=== PATIENT | male | born 1995 | race Caucasian/White ===

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

== ENCOUNTER 2019-06-15 18:36 | Emergency (ER) | payer OTHER ==
[~2019-06-15] VITALS: Ht 185.4 cm; Wt 67.1 kg
[2019-06-15] MEDS ORDERED: ONDANSETRON HCL/PF 4 MG/2 ML VIAL ONE (19:23)
[2019-06-15] MEDS ORDERED: DEXAMETHASONE SOD PHOSPHATE 10 MG/ML VIAL ONE (19:23)
[2019-06-15] MEDS ORDERED: ACETAMINOPHEN ES 500 MG TABLET ONE (19:23)
[2019-06-15] MEDS ORDERED: ONDANSETRON HCL/PF 4 MG/2 ML VIAL IV ONE (19:30)
[2019-06-15] MEDS ORDERED: DEXAMETHASONE SOD PHOSPHATE 10 MG/ML VIAL IV ONE (19:30)
[2019-06-15] MEDS ORDERED: IV NS 0.9% 1,000 ML BAG IV ONE (19:30)
[2019-06-15] MEDS ORDERED: ACETAMINOPHEN 325 MG TABLET PO ONE (19:30)
--- NOTE | 2019-06-15 20:11 | NUR ---
Patient discharged to home in stable condition. Written and verbal after care instructions given. Patient verbalizes understanding of instruction.
[2019-06-15 20:12] VITALS: BP 115/64
== END 2019-06-15 20:12 | disposition home or self-care (01) ==
LOC: ER 18:43
DX: J02.9 Acute pharyngitis, unspecified (principal); F17.200 Nicotine dependence, unspecified, uncomplicated
CPT/HCPCS: 96374; 96375; 99283; J1100; J2405; J7030

== ENCOUNTER 2020-04-24 09:47 | Emergency (ER) | payer OTHER ==
[~2020-04-24] VITALS: Ht 188 cm; Wt 72.6 kg
--- NOTE | 2020-04-24 09:54 | NUR ---
CAME IN FOR GENERALIZED ITCHING, RASH UPON WAKING UP THIS MORNING,PARTIAL RELIEF WITH BENADRIL PO. TO ER BED 1, HOOKED TO MONITOR, CHANGED TO HOSP GOWN, WARM BLANKET PROVIDED. DR ELLER AT BEDSIDE
[2020-04-24] MEDS ORDERED: predniSONE 20 MG TABLET ONE (10:29)
[2020-04-24] MEDS ORDERED: ONDANSETRON 4 MG TAB.RAPDIS ONE (10:29)
[2020-04-24] MEDS ORDERED: FAMOTIDINE (20 MG) 20 MG TABLET ONE (10:29)
[2020-04-24] MEDS ORDERED: ONDANSETRON 4 MG TAB.RAPDIS PO ONE (10:30)
[2020-04-24] MEDS ORDERED: predniSONE 10 MG TABLET PO ONE (10:30)
[2020-04-24] MEDS ORDERED: FAMOTIDINE (20 MG) 20 MG TABLET PO ONE (10:30)
--- NOTE | 2020-04-24 10:32 | NUR ---
Patient discharged to home in stable condition. Written and verbal after care instructions given. Patient verbalizes understanding of instruction.
[2020-04-24 10:35] VITALS: BP 124/101
== END 2020-04-24 10:35 | disposition home or self-care (01) ==
LOC: ER 09:52
DX: L50.8 Other urticaria (principal)
CPT/HCPCS: 99284; J7512; Q0162

== ENCOUNTER 2020-07-25 14:21 | Emergency (ER) | payer OTHER ==
[~2020-07-25] VITALS: Ht 182.9 cm; Wt 81.6 kg
--- NOTE | 2020-07-25 14:35 | NUR ---
C/o testicular pain x 5 days 5/10 pain scale, came from urgent care. Patient a/ox4, breathing even and unlabored, no sob noted. Needs attended. Kept comfortable.
--- NOTE | 2020-07-25 15:14 | NUR ---
URINE SAMPLE SENT.
[2020-07-25 15:33] LABS: BILIRUBIN,URINE NEGATIVE (NEGATIVE); BLOOD, URINE NEGATIVE Ery/uL (NEGATIVE); COLOR,URINE YELLOW (YELLOW); LEUKOCYTE ESTERASE ,URINE NEGATIVE (NEGATIVE); NITRITE, URINE NEGATIVE (NEGATIVE); PROTEIN,URINE NEGATIVE (NEGATIVE); UGLUCOSE NEGATIVE (NEGATIVE); UROBILINOGEN,URINE 0.2 EU/dL (0.2)
--- NOTE | 2020-07-25 16:13 | NUR ---
US TECH AT BEDSIDE
--- NOTE | 2020-07-25 17:25 | NUR ---
Patient discharged to home in stable condition. Written and verbal after care instructions given. Patient verbalizes understanding of instruction.
[2020-07-25 17:26] VITALS: BP 124/71
== END 2020-07-25 17:26 | disposition home or self-care (01) ==
LOC: ER 14:24
DX: N45.1 Epididymitis (principal); F12.90 Cannabis use, unspecified, uncomplicated
CPT/HCPCS: 76870-TC; 81001

== ENCOUNTER 2021-07-26 09:59 | Emergency (ER) | payer OTHER ==
[~2021-07-26] VITALS: Ht 185.4 cm; Wt 77.1 kg
--- NOTE | 2021-07-26 10:18 | NUR ---
DR HANCOCK AT BEDSIDE
[2021-07-26] MEDS ORDERED: AMOX/CLAVULANATE 875 MG TABLET PO ONE (10:30)
[2021-07-26] MEDS ORDERED: DEXAMETHASONE SOD PHOSPHATE 6 MG in IV D5W 50 ML IM ONE (10:30)
[2021-07-26] MEDS ORDERED: DEXAMETHASONE SOD PHOSPHATE 10 MG/ML VIAL ONE (10:37)
[2021-07-26] MEDS ORDERED: AMOX/CLAVULANATE 875 MG TABLET ONE (10:37)
--- NOTE | 2021-07-26 11:04 | NUR ---
COVID SWAB DONE AND SENT TO THE LAB
[2021-07-26] MEDS ORDERED: AMOX-427 PO (11:53)
[2021-07-26 12:07] VITALS: BP 129/67
--- NOTE | 2021-07-26 12:07 | NUR ---
Patient discharged to home in stable condition. Written and verbal after care instructions given. Patient verbalizes understanding of instruction.
== END 2021-07-26 12:08 | disposition home or self-care (01) ==
LOC: ER 10:03
DX: K12.2 Cellulitis and abscess of mouth (principal); Z20.822 Contact with and (suspected) exposure to COVID-19
CPT/HCPCS: 71045; 87426; 96372; 99284; C9803; J1100; J7060

== ENCOUNTER 2022-11-26 13:28 | Emergency (ER) | payer OTHER ==
[~2022-11-26] VITALS: Ht 185.4 cm; Wt 72.6 kg
[~2022-11-26 13:28] MED LIST: AMOX-427 PO
--- NOTE | 2022-11-26 14:10 | NUR ---
PT IN BED 7 BREATHING EVEN AND UNLABORED. C/O: FEVER, SORE THROAT, COUGH FOR X5 DAYS WHILE ON AMX THERAPY.
--- NOTE | 2022-11-26 14:11 | NUR ---
AT BEDSIDE FOR EVAL.
[2022-11-26] MEDS ORDERED: KETO15CR2 TP (14:39)
[2022-11-26] MEDS ORDERED: PENI500T PO (14:39)
[2022-11-26 14:47] VITALS: BP 112/68
== END 2022-11-26 14:47 | disposition home or self-care (01) ==
LOC: ER 13:34
DX: J02.9 Acute pharyngitis, unspecified (principal); R21 Rash and other nonspecific skin eruption; F17.200 Nicotine dependence, unspecified, uncomplicated

== ENCOUNTER 2023-06-05 22:19 | Emergency (ER) | payer OTHER ==
[~2023-06-05] VITALS: Ht 182.9 cm; Wt 78.9 kg
[~2023-06-05 22:19] MED LIST changes: +KETO15CR2 TP; +PENI500T PO
[2023-06-05 23:20] LABS: BASOPHILS % (AUTO) 0.6 % (0.0-2.0); EOSINOPHILS # (AUTO) 0.2 K/uL (0.0-0.7); EOSINOPHILS % (AUTO) 1.9 % (0.0-6.0); HEMATOCRIT 45 % (39-51); HEMOGLOBIN 15.1 g/dL (13.5-17.5); LYMPHOCYTES # (AUTO) 3.2 K/uL (0.8-4.8); LYMPHOCYTES % (AUTO) 37.7 % (20.0-44.0); MEAN CORPUSCULAR HEMOGLOBIN 30 PG (26.0-33.0); MEAN CORPUSCULAR HGB CONC 34 g/dl (31.0-36.0); MEAN CORPUSCULAR VOLUME 87 fL (80-96); MONOCYTES # (AUTO) 0.6 K/uL (0.1-1.30); MONOCYTES % (AUTO) 7.6 % (2.0-12.0); NEUTROPHILS # (AUTO) 4.4 K/uL (1.8-8.9); NEUTROPHILS % (AUTO) 52.2 % (43.0-81.0); PLATELET COUNT (AUTO) 242 K/uL (150-450); RED BLOOD CELL COUNT(AUTO) 5.13 MIL/uL (4.5-6.0); RED CELL DISTRIBUTION WIDTH 13.4 % (11.5-15.0); WHITE BLOOD COUNT (AUTO) 8.4 K/uL (4.3-11.0)
[2023-06-05 23:54] LABS: CARBON DIOXIDE 27 mmol/L (21-32); CHLORIDE 103 mmol/L (98-107); CREATININE 1.2 mg/dL (0.6-1.3); GLUCOSE 113 mg/dL (74-106); POTASSIUM 3.3 mmol/L (3.5-5.1); SODIUM SERUM 140 mmol/L (136-145); UREA NITROGEN, BLOOD 13 mg/dL (7-18)
[2023-06-06 00:48] VITALS: BP 128/80; TEMP 98.2; O2SAT 98
== END 2023-06-06 00:56 | disposition home or self-care (01) ==
LOC: ER 22:23
DX: R07.89 Other chest pain (principal); R06.02 Shortness of breath; F17.210 Nicotine dependence, cigarettes, uncomplicated; Z79.899 Other long term (current) drug therapy
CPT/HCPCS: 36415; 71045-TC; 80048-TC; 84484-TC; 85025-TC; 85378-TC

== ENCOUNTER 2023-11-14 17:42 | Emergency (ER) | payer OTHER ==
[~2023-11-14] VITALS: Ht 185.4 cm; Wt 74.8 kg
[2023-11-14 18:57] VITALS: BP 131/90; TEMP 98.1; O2SAT 99
[2023-11-14] MEDS ORDERED: ACETAMINOPHEN 325 MG TABLET ONE (19:31)
[2023-11-14] MEDS ORDERED: IBUPROFEN 600 MG TABLET ONE (19:32)
[2023-11-14] MEDS ORDERED: TDAP [DIPH/PERTUSSIS/TET] 0.5 ML VIAL IM ONE (19:32)
[2023-11-14] MEDS: ACETAMINOPHEN 325 MG TABLET PO ONE (19:37)
[2023-11-14] MEDS: IBUPROFEN 600 MG TABLET PO ONE (19:37)
[2023-11-14] MEDS: TDAP [DIPH/PERTUSSIS/TET] 0.5 ML VIAL IM ONE (19:37)
[2023-11-14] MEDS ORDERED: IBUP-1955 PO (21:10)
[2023-11-14] MEDS ORDERED: ACET325C7 PO (21:10)
[2023-11-14] MEDS ORDERED: AMOX-430 PO (21:10)
== END 2023-11-14 21:34 | disposition home or self-care (01) ==
LOC: ER 17:47
DX: S61.214A Laceration without foreign body of right ring finger without damage to nail, initial encounter (principal); Y04.1XXA Assault by human bite, initial encounter; Y93.89 Activity, other specified; Y92.89 Other specified places as the place of occurrence of the external cause; Y99.8 Other external cause status
CPT/HCPCS: 73130-TC; 90715

== ENCOUNTER 2024-02-29 21:35 | Emergency (ER) | payer OTHER ==
[~2024-02-29] VITALS: Ht 185.4 cm; Wt 74.8 kg
[~2024-02-29 21:35] MED LIST changes: +ACET325C7 PO; +AMOX-430 PO; +IBUP-1955 PO
[2024-02-29] MEDS ORDERED: IBUPROFEN 400 MG TABLET ONE (23:26)
[2024-02-29] MEDS: IBUPROFEN 400 MG TABLET PO ONE (23:36)
[2024-02-29 23:37] VITALS: BP 121/76; TEMP 98.8; O2SAT 99
== END 2024-02-29 23:39 | disposition home or self-care (01) ==
LOC: ER 21:35
DX: S60.221A Contusion of right hand, initial encounter (principal); F17.200 Nicotine dependence, unspecified, uncomplicated; Z79.899 Other long term (current) drug therapy; W22.8XXA Striking against or struck by other objects, initial encounter; Y93.89 Activity, other specified; Y92.89 Other specified places as the place of occurrence of the external cause; Y99.8 Other external cause status
CPT/HCPCS: 73130-TC

== ENCOUNTER 2024-04-11 01:34 | Emergency (ER) | payer OTHER ==
[~2024-04-11] VITALS: Ht 185.4 cm; Wt 77.1 kg
[2024-04-11 02:37] VITALS: TEMP 98.4
[2024-04-11] MEDS ORDERED: CT SWABBABLE VALVE TRANS SET 1 EA INFUS.SET MC ONE (03:21)
[2024-04-11] MEDS ORDERED: IV NS 0.9% 250 ML IV ONE (03:21)
[2024-04-11] MEDS ORDERED: IOHEXOL-300 100 ML VIAL IV ONE (03:21)
[2024-04-11 03:43] LABS: BASOPHILS % (AUTO) 0.5 % (0.0-2.0); EOSINOPHILS # (AUTO) 0.3 K/uL (0.0-0.7); EOSINOPHILS % (AUTO) 2.4 % (0.0-6.0); HEMATOCRIT 44 % (39-51); HEMOGLOBIN 14.8 g/dL (13.5-17.5); LYMPHOCYTES # (AUTO) 3.8 K/uL (0.8-4.8); LYMPHOCYTES % (AUTO) 36.1 % (20.0-44.0); MEAN CORPUSCULAR HEMOGLOBIN 30 PG (26.0-33.0); MEAN CORPUSCULAR HGB CONC 34 g/dl (31.0-36.0); MEAN CORPUSCULAR VOLUME 87 fL (80-96); MONOCYTES # (AUTO) 0.6 K/uL (0.1-1.30); MONOCYTES % (AUTO) 6.2 % (2.0-12.0); NEUTROPHILS # (AUTO) 5.7 K/uL (1.8-8.9); NEUTROPHILS % (AUTO) 54.8 % (43.0-81.0); PLATELET COUNT (AUTO) 243 K/uL (150-450); RED CELL DISTRIBUTION WIDTH 13.9 % (11.5-15.0); WHITE BLOOD COUNT (AUTO) 10.5 K/uL (4.3-11.0)
[2024-04-11 03:48] LABS: CALCIUM, SERUM 8.8 mg/dL (8.5-10.1); CREATININE 0.9 mg/dL (0.6-1.3); POTASSIUM 3.6 mmol/L (3.5-5.1)
[2024-04-11 03:54] LABS: INR 1.03 (0.91-1.10); PARTIAL THROMBOPLASTIN TIME 25.9 SEC (24.3-34.3); PROTHROMBIN TIME 10.9 SECS (9.2-11.1)
[2024-04-11] MEDS ORDERED: BENZ-13 PO (04:00)
[2024-04-11] MEDS ORDERED: AZIT500T4 PO (04:00)
[2024-04-11] MEDS ORDERED: GUAI1TBM19 PO (04:00)
[2024-04-11 04:32] VITALS: BP 128/70; O2SAT 98
== END 2024-04-11 04:33 | disposition home or self-care (01) ==
LOC: ER 01:35
DX: R04.2 Hemoptysis (principal); J40 Bronchitis, not specified as acute or chronic; R07.89 Other chest pain; F17.210 Nicotine dependence, cigarettes, uncomplicated; Z79.1 Long term (current) use of non-steroidal anti-inflammatories (NSAID); Z79.899 Other long term (current) drug therapy
CPT/HCPCS: 99285; 71260; 99406; 93005; 85025; 80048; 36415; 85730; J7050; Q9967